=== PATIENT | female | born 1945 | race Caucasian/White ===

== ENCOUNTER → 2016-10-03 | Outpatient (CLI) | payer MEDICARE, BC ==
[2016-10-03 15:06] VITALS: BP 143/87; PULSE 74; RESP 16; TEMP 98.1; BMI 33.1
--- NOTE | 2016-10-03 15:13 | P.HPBAR ---
Bariatric H&P - History & Physicial H&P Date: 10/03/16 History & Physicial: Visit/CC: Band Follow-Up Patient initial contact: Initial weight: 112.037 kg Initial weight in pounds: 247.00 Height: 5 ft 3 in Initial BMI: 43.7 Last weight: Current weight: 84.878 kg Current weight in pounds: 187.00 Current BMI: 33.1 [place] body weight (based on NIH guidelines): 52.163 kg Excess body weight loss: 45.4% The patient is a 70 year-old F who presents for Bariatric Assessment. The patient has complaints of some indigestion and epigastric pain. She also has some issues with GERD and reflux. Past Medical History History of Any Multi-Drug Resistant Organisms: None Reported Past Surgical History: Appendectomy, Bariatric Surgery, Cholecystectomy, Hysterectomy, Orthopedic Surgery Additional Past Surgical History / Comment(s): gastric band surgery 2006fill 2014 2cc in band last f left shoulder scbilateral knee surgery left hip replacement Past Anesthesia/Blood Transfusion Reactions: No Reported Reaction Past Psychological History: No Psychological Hx Reported Smoking Status: Never smoker Past Alcohol Use History: None Reported Past Drug Use History: None Reported Surgical - Exam Vital Signs Temp Pulse Resp BP 98.1 F 74 16 143/87 10/03/16 14:58 10/03/16 14:58 10/03/16 14:58 10/03/16 14:58 - General well developed, no distress - Eyes PERRL - ENT normal pinna - Neck no masses - Respiratory normal expansion - Cardiovascular Rhythm: regular - Abdomen Abdomen: soft, non tender Bariatric Assessment & Plan Plan: The patient's LAP-BAND was empty. She had 2 mL removed from her LAP-BAND. She will follow-up in one month. Bariatric Checklist Checklist: Plan: Checklist: EGD: 1. Hiatal hernia: 2. H. Pylori: HgbA1c: Vitamin D: Smoking: Never smoker Primary care physician referral: Dr. Kuhn/[place] Psychiatry clearance: Cardiology clearance: Sleep study: Diet journal: VTE risk score: VTE risk level: Rehab needs at discharge:
== END | disposition home or self-care (01) ==
LOC: BARWHC3 14:40
PROVIDERS: ATTEND Surgery
DX: Z48.815 Encounter for surgical aftercare following surgery on the digestive system (principal); Z98.84 Bariatric surgery status; Z68.38 Body mass index [BMI] 38.0-38.9, adult; K21.9 Gastro-esophageal reflux disease without esophagitis; R10.13 Epigastric pain
CPT/HCPCS: 99202

== ENCOUNTER → 2017-03-27 | Outpatient (CLI) | payer MEDICARE, BC ==
[2017-03-27 15:34] VITALS: BP 140/82; PULSE 87; TEMP 98.1; BMI 37.2
--- NOTE | 2017-03-27 16:38 | P.HPBAR ---
Bariatric H&P - History & Physicial H&P Date: 03/27/17 History & Physicial: Visit/CC: lap band fill Patient initial contact: Initial weight: 112.037 kg Initial weight in pounds: 247.00 Height: 5 ft 3 in Initial BMI: 43.7 Last weight: 187 Current weight: 95.39 kg Current weight in pounds: 210.30 Current BMI: 37.2 [place] body weight (based on NIH guidelines): 52.163 kg Excess body weight loss: 27.8% The patient is a 71 year-old F who presents for Bariatric Assessment. Patient is a safer LAP-BAND follow-up. She states that she is hungry and asking weight. She's gained 20 pounds her last visit. She is requesting fluid to be adherent band. Past Medical History History of Any Multi-Drug Resistant Organisms: None Reported Past Surgical History: Appendectomy, Bariatric Surgery, Cholecystectomy, Hysterectomy, Orthopedic Surgery Additional Past Surgical History / Comment(s): gastric band surgery 2006fill 2014 2cc in band last f left shoulder scbilateral knee surgery left hip replacement Past Anesthesia/Blood Transfusion Reactions: No Reported Reaction Smoking Status: Never smoker Surgical - Exam Vital Signs Temp Pulse BP 98.1 F 87 140/82 03/27/17 15:28 03/27/17 15:28 03/27/17 15:28 - General well developed - Abdomen Abdomen: soft, non tender Bariatric Assessment & Plan Plan: Morbid obesity with BMI of 37. Patient's LAP-BAND was just. She had 2 mL added to her band. She will follow-up in one month. Bariatric Checklist Checklist: Plan: Checklist: EGD: 1. Hiatal hernia: 2. H. Pylori: HgbA1c: Vitamin D: Smoking: Never smoker Primary care physician referral: Dr. Kuhn/[place] Psychiatry clearance: Cardiology clearance: Sleep study: Diet journal: VTE risk score: VTE risk level: Rehab needs at discharge:
== END | disposition home or self-care (01) ==
LOC: BARWHC3 14:26
PROVIDERS: ATTEND Surgery
DX: Z48.815 Encounter for surgical aftercare following surgery on the digestive system (principal); E66.01 Morbid (severe) obesity due to excess calories; Z68.37 Body mass index [BMI] 37.0-37.9, adult; Z98.84 Bariatric surgery status
CPT/HCPCS: 99212

== ENCOUNTER → 2017-07-24 | Outpatient (CLI) | payer MEDICARE, BC ==
[2017-07-24 15:54] VITALS: BP 138/86; PULSE 75; RESP 16; TEMP 98; BMI 35.2
--- NOTE | 2017-07-24 16:48 | P.HPBAR ---
Bariatric H&P - History & Physicial H&P Date: 07/24/17 History & Physicial: Visit/CC: band check Patient initial contact: Initial weight: 112.037 kg Initial weight in pounds: 247.00 Height: 5 ft 3 in Initial BMI: 43.7 Last weight: Current weight: 90.293 kg Current weight in pounds: 199.00 Current BMI: 35.2 [place] body weight (based on NIH guidelines): 52.163 kg Excess body weight loss: 36.3% The patient is a 71 year-old F who presents for Bariatric Assessment. Since today for lab band follow up. Dysphagia. She wants a small amount of fluid removed from her band. Past Medical History History of Any Multi-Drug Resistant Organisms: None Reported Past Surgical History: Bariatric Surgery, Cholecystectomy, Hysterectomy, Orthopedic Surgery Additional Past Surgical History / Comment(s): gastric band surgery 2006fill 2014 2cc in band last f left shoulder scbilateral knee surgery left hip replacement Past Anesthesia/Blood Transfusion Reactions: No Reported Reaction Smoking Status: Never smoker Surgical - Exam Vital Signs Temp Pulse Resp BP 98.0 F 75 16 138/86 07/24/17 15:50 07/24/17 15:50 07/24/17 15:50 07/24/17 15:50 - General well developed, no distress - Eyes PERRL - ENT normal pinna - Neck no masses - Respiratory normal expansion - Cardiovascular Rhythm: regular - Abdomen Abdomen: soft, non tender Bariatric Assessment & Plan Plan: Morbid obesity. Patient's band was emptied 0.3 mL. She has 1.7 mL in the band. She'll follow-up in one week. Bariatric Checklist Checklist: Plan: Checklist: EGD: 1. Hiatal hernia: 2. H. Pylori: HgbA1c: Vitamin D: Smoking: Never smoker Primary care physician referral: Dr. Kuhn/[place] Psychiatry clearance: Cardiology clearance: Sleep study: Diet journal: VTE risk score: VTE risk level: Rehab needs at discharge:
== END | disposition home or self-care (01) ==
LOC: BARWHC3 15:20
PROVIDERS: ATTEND Surgery
DX: Z09 Encounter for follow-up examination after completed treatment for conditions other than malignant neoplasm (principal); Z98.84 Bariatric surgery status
CPT/HCPCS: 99212

== ENCOUNTER 2018-09-03 16:35 | Inpatient (IN) | payer MEDICARE, BC ==
[2018-09-03 17:57] LABS: Basophils % (A) 0 %; Eosinophils # (A) 0.1 k/uL (0-0.7); Eosinophils % (A) 2 %; HCT 44.2 % (34.0-46.0); HGB 14.8 gm/dL (11.4-16.0); Lymphocytes # (A) 1.8 k/uL (1.0-4.8); Lymphocytes % (A) 26 %; MCH 30.8 pg (25.0-35.0); MCHC 33.4 g/dL (31.0-37.0); MCV 92.1 fL (80.0-100.0); Mean Platelet Volume 6.4; Monocytes # (A) 0.3 k/uL (0-1.0); Monocytes % (A) 5 %; Neutrophils # (A) 4.7 k/uL (1.3-7.7); Neutrophils % (A) 66 %; Platelet Count 186 k/uL (150-450); RDW 13.1 % (11.5-15.5); WBC 7.1 k/uL (3.8-10.6)
[2018-09-03 18:16] LABS: Creatine Kinase 53 U/L (30-135)
[2018-09-03 18:21] LABS: ALT 24 U/L (9-52); AST 24 U/L (14-36); Alkaline Phosphatase 86 U/L (38-126); Anion Gap 8 mmol/L; Blood Urea Nitrogen 11 mg/dL (7-17); Calcium 9.6 mg/dL (8.4-10.2); Carbon Dioxide 27 mmol/L (22-30); Chloride 106 mmol/L (98-107); Glucose 103 mg/dL (74-99); Potassium 5.5 mmol/L (3.5-5.1); Sodium 141 mmol/L (137-145); Total Bilirubin 0.6 mg/dL (0.2-1.3)
[2018-09-03 18:27] LABS: Creatine Kinase MB 0.5 ng/mL (0.0-2.4); Troponin I <0.012 ng/mL (0.000-0.034)
--- NOTE | 2018-09-03 20:23 | ED ---
SOB HPI - General Chief Complaint: Shortness of Breath Stated Complaint: SOB Time Seen by Provider: 09/03/18 19:27 Source: patient, RN notes reviewed Mode of arrival: ambulatory Limitations: no limitations - History of Present Illness Initial Comments: This is a 72-year-old female who presents with complaints of shortness of breath exertional dyspnea. He states she's had peripheral edema this started several days before [place]. She's had weight gain in between 12 and 15 pounds. She states her shoes and socks are tight she also feels some chest tightness over the past 3 days. No fevers chills nausea vomiting sweats. No tightness at this time. No history of CHF she is a former smoker who quit about 30 years ago. She's never been diagnosed with asthma or COPD. MD Complaint: shortness of breath - Related Data Home Medications Medication Instructions Recorded Confirmed No Known Home Medications 07/25/17 07/25/17 Allergies Allergy/AdvReac Type Severity Reaction Status Date / Time No Known Allergies Allergy Verified 09/03/18 16:46 Review of Systems ROS Statement: Those systems with pertinent positive or pertinent negative responses have been documented in the HPI. ROS Other: All systems not noted in ROS Statement are negative. Past Medical History Past Medical History: No Reported History History of Any Multi-Drug Resistant Organisms: None Reported Past Surgical History: Bariatric Surgery, Cholecystectomy, Hysterectomy, Orthopedic Surgery Additional Past Surgical History / Comment(s): gastric band surgery 2006fill 2015 2cc in band last f left shoulder scbilateral knee surgery left hip replacement Past Anesthesia/Blood Transfusion Reactions: No Reported Reaction Past Psychological History: No Psychological Hx Reported Smoking Status: Former smoker Past Alcohol Use History: Rare Past Drug Use History: None Reported General Exam - General Exam Comments Initial Comments: This is a well-developed well-nourished awake alert oriented 3 female Limitations: no limitations General appearance: alert, in no apparent distress Head exam: Present: atraumatic, normocephalic, normal inspection Eye exam: Present: normal appearance, PERRL, EOMI. Absent: scleral icterus, conjunctival injection, periorbital swelling ENT exam: Present: normal exam, mucous membranes moist Neck exam: Present: normal inspection, full ROM, other (No stridor JVD or bruits ). Absent: tenderness, meningismus, lymphadenopathy Respiratory exam: Present: decreased breath sounds. Absent: respiratory distress, wheezes, rales, rhonchi, stridor Cardiovascular Exam: Present: regular rate, normal rhythm, normal heart sounds. Absent: systolic murmur, diastolic murmur, rubs, gallop, clicks GI/Abdominal exam: Present: soft, normal bowel sounds. Absent: distended, tenderness, guarding, rebound, rigid Extremities exam: Present: normal inspection, full ROM, normal capillary refill , pedal edema. Absent: tenderness, joint swelling, calf tenderness Back exam: Present: normal inspection Neurological exam: Present: alert, oriented X3, CN II-XII intact Psychiatric exam: Present: normal affect, normal mood Skin exam: Present: warm, dry, intact, normal color. Absent: rash Course Vital Signs 09/03/18 09/03/18 09/03/18 16:42 19:47 19:50 Temperature 97.8 F Pulse Rate 73 67 69 Respiratory 20 18 18 Rate Blood Pressure 207/88 147/79 147/79 O2 Sat by Pulse 98 95 96 Oximetry 09/03/18 09/03/18 09/03/18 20:00 20:54 21:00 Temperature Pulse Rate 65 66 64 Respiratory 20 16 Rate Blood Pressure 147/79 156/89 O2 Sat by Pulse 94 L 100 Oximetry 09/03/18 21:07 Temperature Pulse Rate 68 Respiratory Rate Blood Pressure O2 Sat by Pulse Oximetry Medical Decision Making - Medical Decision Making Patient is some remote relief from the nebulizer treatment. She will be admitted for evaluation of peripheral edema suspected heart failure a component of COPD as suspected I did discuss case with Dr. Garner - Lab Data Result diagrams: 09/03/18 17:42 09/03/18 17:42 Lab Results 09/03/18 09/03/18 09/03/18 Range/Units 17:42 17:42 17:42 WBC 7.1 (3.8-10.6) k/uL RBC 4.80 (3.80-5.40) m/uL Hgb 14.8 (11.4-16.0) gm/dL Hct 44.2 (34.0-46.0) % MCV 92.1 (80.0-100.0) fL MCH 30.8 (25.0-35.0) pg MCHC 33.4 (31.0-37.0) g/dL RDW 13.1 (11.5-15.5) % Plt Count 186 (150-450) k/uL Neutrophils % 66 % Lymphocytes % 26 % Monocytes % 5 % Eosinophils % 2 % Basophils % 0 % Neutrophils # 4.7 (1.3-7.7) k/uL Lymphocytes # 1.8 (1.0-4.8) k/uL Monocytes # 0.3 (0-1.0) k/uL Eosinophils # 0.1 (0-0.7) k/uL Basophils # 0.0 (0-0.2) k/uL Sodium 141 (137-145) mmol/L Potassium 5.5 H (3.5-5.1) mmol/L Chloride 106 (98-107) mmol/L Carbon Dioxide 27 (22-30) mmol/L Anion Gap 8 mmol/L BUN 11 (7-17) mg/dL Creatinine 0.52 (0.52-1.04) mg/dL Est GFR (CKD-EPI)AfAm >90 (>60 ml/min/1.73 sqM) Est GFR (CKD-EPI)NonAf >90 (>60 ml/min/1.73 sqM) Glucose 103 H (74-99) mg/dL Plasma Lactic Acid Brenden (0.7-2.0) mmol/L Calcium 9.6 (8.4-10.2) mg/dL Magnesium (1.6-2.3) mg/dL Total Bilirubin 0.6 (0.2-1.3) mg/dL AST 24 (14-36) U/L ALT 24 (9-52) U/L Alkaline Phosphatase 86 (38-126) U/L Total Creatine Kinase 53 (30-135) U/L CK-MB (CK-2) 0.5 (0.0-2.4) ng/mL CK-MB (CK-2) Rel Index 0.9 Troponin I <0.012 (0.000-0.034) ng/mL NT-Pro-B Natriuret Pep pg/mL Total Protein 7.0 (6.3-8.2) g/dL Albumin 4.0 (3.5-5.0) g/dL 09/03/18 09/03/18 09/03/18 Range/Units 17:42 17:42 17:42 WBC (3.8-10.6) k/uL RBC (3.80-5.40) m/uL Hgb (11.4-16.0) gm/dL Hct (34.0-46.0) % MCV (80.0-100.0) fL MCH (25.0-35.0) pg MCHC (31.0-37.0) g/dL RDW (11.5-15.5) % Plt Count (150-450) k/uL Neutrophils % % Lymphocytes % % Monocytes % % Eosinophils % % Basophils % % Neutrophils # (1.3-7.7) k/uL Lymphocytes # (1.0-4.8) k/uL Monocytes # (0-1.0) k/uL Eosinophils # (0-0.7) k/uL Basophils # (0-0.2) k/uL Sodium (137-145) mmol/L Potassium (3.5-5.1) mmol/L Chloride (98-107) mmol/L Carbon Dioxide (22-30) mmol/L Anion Gap mmol/L BUN (7-17) mg/dL Creatinine (0.52-1.04) mg/dL Est GFR (CKD-EPI)AfAm (>60 ml/min/1.73 sqM) Est GFR (CKD-EPI)NonAf (>60 ml/min/1.73 sqM) Glucose (74-99) mg/dL Plasma Lactic Acid Brenden 1.6 (0.7-2.0) mmol/L Calcium (8.4-10.2) mg/dL Magnesium 2.0 (1.6-2.3) mg/dL Total Bilirubin (0.2-1.3) mg/dL AST (14-36) U/L ALT (9-52) U/L Alkaline Phosphatase (38-126) U/L Total Creatine Kinase (30-135) U/L CK-MB (CK-2) (0.0-2.4) ng/mL CK-MB (CK-2) Rel Index Troponin I (0.000-0.034) ng/mL NT-Pro-B Natriuret Pep 355 pg/mL Total Protein (6.3-8.2) g/dL Albumin (3.5-5.0) g/dL - EKG Data -: EKG Interpreted by [facility] EKG shows normal: sinus rhythm (With a first-degree AV block right bundle branch lock left anterior fascicular block and minimal voltage criteria for LVH ventricular rate 66. Interval to 12 QRS duration 138 QT since QTC 462/44) - Radiology Data Radiology results: report reviewed (Crease interstitial markings noted on x-ray) , image reviewed Disposition Clinical Impression: Congestive heart failure, Peripheral edema, Bronchospasm, acute Disposition: ADMITTED IP TO THIS [facility] Condition: Stable Referrals: Isai Rajput MD [Primary Care Provider] - 1-2 days
[2018-09-03] MEDS ORDERED: IPRATROPIUM-ALBUTEROL 3 ML NEB INHALATION STA (20:40)
--- NOTE | 2018-09-03 20:55 | XR ---
EXAMINATION TYPE: XR chest 2V DATE OF EXAM: 09/03/2018 COMPARISON: None HISTORY: 72-year-old female shortness of breath, cough TECHNIQUE: PA and lateral views FINDINGS: Heart borderline enlarged. Mild elongation thoracic aorta. Mild interstitial prominence. No sizable e ffusion. IMPRESSION: Borderline cardiomegaly and interstitial changes. Correlate for possible mild pulmonary vascular gabrielle estion.
[2018-09-03] MEDS ORDERED: FUROSEMIDE 10 MG/ML 4 ML VIAL IV STA (23:01)
[2018-09-03] MEDS ORDERED: SODIUM CHLORIDE 0.9% 1,000 ML IV SCH (23:15)
[2018-09-03] MEDS ORDERED: FUROSEMIDE 10 MG/ML 4 ML VIAL IV SCH (23:15)
--- NOTE | 2018-09-03 23:31 | P.HPIM ---
History of Present Illness H&P Date: 09/03/18 Chief Complaint: sob 72-year-old female who presents with complaints of progressively worsening exertional chest pressure as well as shortness of breath. She states she's had bilateral legs edema that started several days before [place]. She's had weight gain in between 12 and 15 pounds. She states her shoes and socks are tightl. Also has exertional chest pressure/tightness over the past 3 days that is relieved with rest. She has been having cough for a while. No recent illness , fevers chills nausea vomiting sweats. No history of CHF, she is a former smoker who quit about 30 years ago, smoked about 40 years. She's never been diagnosed with asthma or COPD. Review of Systems 12 point review of system performed, negative except for HPI Past Medical History Past Medical History: No Reported History History of Any Multi-Drug Resistant Organisms: None Reported Past Surgical History: Bariatric Surgery, Cholecystectomy, Hysterectomy, Orthopedic Surgery Additional Past Surgical History / Comment(s): gastric band surgery 2006fill 2015 2cc in band last f left shoulder scbilateral knee surgery left hip replacement Past Anesthesia/Blood Transfusion Reactions: No Reported Reaction Past Psychological History: No Psychological Hx Reported Smoking Status: Former smoker Past Alcohol Use History: Rare Past Drug Use History: None Reported Medications and Allergies Home Medications Medication Instructions Recorded Confirmed Type No Known Home Medications 07/25/17 07/25/17 History Allergies Allergy/AdvReac Type Severity Reaction Status Date / Time No Known Allergies Allergy Verified 09/03/18 16:46 Physical Exam Vitals: Vital Signs Temp Pulse Resp BP Pulse Ox 09/03/18 23:00 75 16 121/72 93 L 09/03/18 22:00 76 16 133/68 93 L 09/03/18 21:07 68 09/03/18 21:00 64 16 156/89 100 09/03/18 20:54 66 09/03/18 20:00 65 20 147/79 94 L 09/03/18 19:50 69 18 147/79 96 09/03/18 19:47 67 18 147/79 95 09/03/18 16:42 97.8 F 73 20 207/88 98 Intake and Output 09/03/18 09/03/18 09/04/18 14:59 22:59 06:59 Other: Weight 95.708 kg Constitutional: No acute distress, conversant, pleasant Eyes:Anicteric sclerae, moist conjunctiva, no lid-lag, PERRLA, ENMT: Oropharynx clear, no erythema, exudates Neck: Supple, FROM, no masses, or JVD, No carotid bruits, No thyromegaly Lungs: Clear to auscultation, Clear to percussion, Normal respiratory effort, no accessory muscle use Cardiovascular: Heart regular in rate and rhythm, No murmurs, gallops, or rubs, 2+ peripheral edema Abdominal: Soft, Nontender, no guarding, rebound or rigidity, Normoactive bowel sounds, No hepatomegaly, No splenomegaly, No palpable mass Skin: Normal temperature, tone, texture, turgor, no induration, No subcutaneous nodules, No rash, lesions, No ulcers Extremities: No digital cyanosis, No clubbing, Pedal pulses intact and symmetrical, Radial pulses intact and symmetrical, No calf tenderness Psychiatric: Alert and oriented to person, place and time, appropriate affect, intact judgement Neuro: Muscles Strength 5/5 in all 4 extremities, Sensation to light touch grossly present throughout, Cranial nerves II-XII grossly intact, no focal sensory deficits Results CBC & Chem 7: 09/03/18 17:42 09/03/18 17:42 Labs: Abnormal Lab Results - Last 24 Hours (Table) 09/03/18 Range/Units 17:42 Potassium 5.5 H (3.5-5.1) mmol/L Glucose 103 H (74-99) mg/dL Assessment and Plan Plan: Acute onset of shortness of breath and chest tightness Likely secondary to congestive heart failure, new onset Rule out coronary artery disease Cardiology consult Cycle troponins Check HbA1c and lipid profile Lasix 20 mg IV twice a day Start baby aspirin Monitor daily weights and I's and O's DVT prophylaxis SCDs
[2018-09-04 01:25] VITALS: BMI 38.0
[2018-09-04] MEDS: ACETAMINOPHEN TAB 325 MG TAB PO PRN ×2 (05:42→10:58)
[2018-09-04 06:33] LABS: Basophils % (A) 1 %; Eosinophils # (A) 0.1 k/uL (0-0.7); Eosinophils % (A) 1 %; HCT 42.5 % (34.0-46.0); HGB 14.1 gm/dL (11.4-16.0); Lymphocytes # (A) 1.8 k/uL (1.0-4.8); Lymphocytes % (A) 27 %; MCH 30.7 pg (25.0-35.0); MCHC 33.2 g/dL (31.0-37.0); MCV 92.4 fL (80.0-100.0); Mean Platelet Volume 6.6; Monocytes # (A) 0.5 k/uL (0-1.0); Monocytes % (A) 7 %; Neutrophils # (A) 4.1 k/uL (1.3-7.7); Neutrophils % (A) 62 %; Platelet Count 191 k/uL (150-450); RDW 13.2 % (11.5-15.5); WBC 6.6 k/uL (3.8-10.6)
[2018-09-04 07:03] LABS: Anion Gap 6 mmol/L; Blood Urea Nitrogen 14 mg/dL (7-17); Calcium 9.4 mg/dL (8.4-10.2); Carbon Dioxide 32 mmol/L (22-30); Chloride 103 mmol/L (98-107); Cholesterol 187 mg/dL (<200); Glucose 100 mg/dL (74-99); HDL Cholesterol 85 mg/dL (40-60); LDL Cholesterol,Calculated 87 mg/dL (0-99); Magnesium 1.9 mg/dL (1.6-2.3); Phosphorus 4.5 mg/dL (2.5-4.5); Potassium 4.8 mmol/L (3.5-5.1); Sodium 141 mmol/L (137-145); Triglycerides 76 mg/dL (<150)
[2018-09-04] MEDS: FUROSEMIDE 10 MG/ML 2 ML VIAL IV SCH ×2 (08:03→20:22)
[2018-09-04] MEDS: ASPIRIN 81 MG PO SCH (08:03)
[2018-09-04] MEDS: IPRATROPIUM-ALBUTEROL 3 ML NEB INHALATION SCH ×4 (08:31→20:40)
--- NOTE | 2018-09-04 14:25 | P.PN ---
Subjective Patient complains of couple weeks worsening shortness of breath with exertion and eventually at rest. He complains of significant weight gain and leg edema. Also orthopnea. She denies any cough. She denies any chest pain SHOT does report some chest tightness. On admission chest x-ray showed some interstitial pulmonary changes consistent with congestive changes. She was given IV Lasix with significant diuresis and she's feeling much better her chest tightness has resolved and her shortness of breath is much improved. She has history of smoking. She does not take any aspirin. She denies any family history of coronary artery disease or heart failure. REVIEW OF SYSTEMS: CONSTITUTIONAL: No fever or chills HEENT: No changes in vision or voice CARDIOVASCULAR: no chest pain or abnormal heart beats, or any swelling in ankles or feet. RESPIRATORY: per hpi GASTROINTESTINAL: No abdominal pain, no nausea no vomiting no constipation or diarrhea GENITOURINARY: no any urinary urgency, frequency or burning, and there has been no blood in her urine. no flank pain. MUSCULOSKELETAL: She notes full range of motion of all her joints without pain or swelling. NEUROLOGICAL: , no headache. no vision changes, or fainting. No numbness or tingling. Objective - Vital Signs Vital signs: Vital Signs Temp 97.8 F 09/04/18 12:00 Pulse 66 09/04/18 12:26 Resp 18 09/04/18 12:17 BP 158/80 09/04/18 12:00 Pulse Ox 95 09/04/18 12:00 Intake & Output 09/03/18 09/04/18 09/04/18 18:59 06:59 18:59 Intake Total 250 Output Total 700 Balance -700 250 Weight 95.708 kg 97.3 kg 97.3 kg Intake: Intake, IV Titration 10 Amount Sodium Chloride 0.9% 1, 10 000 ml @ 20 mls/hr IV . Q24H [facility] Rx#:[id number] Oral 240 Output: Urine 700 Other: Voiding Method Toilet # Voids 1 - Exam Vital Signs: I have reviewed the vital signs. GENERAL: Well-nourished, Well-developed , no apparent distress, cooperative Eyes: PERRL, extraoculry movements intact, clear conjunctiva Head: : Atraumatic external nose and ears, oropharyngeal mucosa is moist without lesions or exudates Neck: Symmetric, trachea midline, No thyromegaly, no masses or neck vain pulsation, no neck rigidity CVS: +S1/S2, No murmurs or gallops. Peripheral pulses 2+ and equal in all extremities. RESP: Unlabored respiratory effort. It sounds are present and few inspiratory crackles in the bases but no wheezing Abdomen: Bowel sounds present in all 4 quadrants, Soft to palpation, Nontender/ Nondistended, No hepatosplenomegaly, no hernias or masses, no CVA tnderness Musculoskeletal: Extremities w/o deformity, No cyanosis or clubbing, no joint swelling. 1+ pitting edema Skin: Warm, Dry. No rashes or lesions Neuro: search marketing specialist II-XII grossly intact, motor strenght 5/5 i upper and lower extremities, no clonus, patellar DTRs 2+ and sympetrical Psych: Awake, Alert, & Oriented (AAO) x3 Appropriate mood and affect - Labs CBC & Chem 7: 09/04/18 05:36 09/04/18 05:36 Labs: Abnormal Lab Results - Last 24 Hours (Table) 09/03/18 09/04/18 Range/Units 17:42 05:36 Potassium 5.5 H (3.5-5.1) mmol/L Carbon Dioxide 32 H (22-30) mmol/L Glucose 103 H 100 H (74-99) mg/dL HDL Cholesterol 85 H (40-60) mg/dL Assessment and Plan Assessment: 1. Dyspnea New onset Clinically due to congestive heart failure exacerbation Cardiac workup pending including echocardiogram, cardiology consultation and these results possibly ischemic workup Continue with diuresis Strict I's and O's Monitor electrolytes and renal function
--- NOTE | 2018-09-04 15:11 | P.CRDCN ---
History of Present Illness History of present illness: This is Dr. 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 EXAMINATION: On examination she does have mild bilateral lower extremity edema Breath sounds are reduced but active with her no rhonchi no crackles Heart sounds. Was soft no murmurs or gallop or rub Abdomen soft nontender Blood pressure elevated 150 tolerated millimeters mercury pulse rate in the 60s afebrile REVIEW OF LABS, ECG & MEDICAL DATA Normal hemoglobin potassium 5.5 normal renal function Troponins normal BNP 355 Sinus rhythm prolonged RI interval right bundle branch block left anterior fascicular block Past Medical History Past Medical History: No Reported History History of Any Multi-Drug Resistant Organisms: None Reported Past Surgical History: Bariatric Surgery, Cholecystectomy, Hysterectomy, Orthopedic Surgery Additional Past Surgical History / Comment(s): gastric band surgery 2006fill 2014 2cc in band last f left shoulder scbilateral knee surgery left hip replacement Past Anesthesia/Blood Transfusion Reactions: No Reported Reaction Past Psychological History: No Psychological Hx Reported Smoking Status: Former smoker Past Alcohol Use History: Rare Past Drug Use History: None Reported - Past Family History Mother Family Medical History: Cancer Father Family Medical History: Congestive Heart Failure (CHF) Medications and Allergies Home Medications Medication Instructions Recorded Confirmed Type Ibuprofen [Advil] 600 mg PO DAILY 09/03/18 09/03/18 History Allergies Allergy/AdvReac Type Severity Reaction Status Date / Time No Known Allergies Allergy Verified 09/03/18 23:48 Physical Exam Vitals: Vital Signs Temp Pulse Pulse Resp BP BP Pulse Ox 09/04/18 12:26 66 09/04/18 12:17 64 18 09/04/18 12:00 97.8 F 63 18 158/80 95 09/04/18 08:41 75 18 09/04/18 08:31 75 18 09/04/18 08:00 98.1 F 72 18 124/73 96 09/04/18 03:15 74 19 09/04/18 03:14 98.0 F 74 19 169/84 95 09/04/18 00:57 98.0 F 71 16 166/90 98 09/03/18 23:00 75 16 121/72 93 L 09/03/18 22:00 76 16 133/68 93 L 09/03/18 21:07 68 09/03/18 21:00 64 16 156/89 100 09/03/18 20:54 66 09/03/18 20:00 65 20 147/79 94 L 09/03/18 19:50 69 18 147/79 96 09/03/18 19:47 67 18 147/79 95 09/03/18 16:42 97.8 F 73 20 207/88 98 Intake and Output 09/04/18 09/04/18 09/04/18 06:59 14:59 22:59 Intake Total 250 Output Total 700 Balance -700 250 Intake: Intake, IV Titration 10 Amount Sodium Chloride 0.9% 1, 10 000 ml @ 20 mls/hr IV . Q24H [facility] Rx#:[id number] Oral 240 Output: Urine 700 Other: Voiding Method Toilet # Voids 1 Weight 97.3 kg 97.3 kg Results 09/04/18 05:36 09/04/18 05:36 Cardiac Enzymes 09/03/18 09/03/18 09/04/18 Range/Units 17:42 17:42 05:36 AST 24 (14-36) U/L CK-MB (CK-2) 0.5 (0.0-2.4) ng/mL Troponin I <0.012 <0.012 (0.000-0.034) ng/mL Lipids 09/04/18 Range/Units 05:36 Triglycerides 76 (<150) mg/dL Cholesterol 187 (<200) mg/dL HDL Cholesterol 85 H (40-60) mg/dL CBC 09/03/18 09/04/18 Range/Units 17:42 05:36 WBC 7.1 6.6 (3.8-10.6) k/uL RBC 4.80 4.60 (3.80-5.40) m/uL Hgb 14.8 14.1 (11.4-16.0) gm/dL Hct 44.2 42.5 (34.0-46.0) % Plt Count 186 191 (150-450) k/uL Comprehensive Metabolic Panel 09/03/18 09/04/18 Range/Units 17:42 05:36 Sodium 141 141 (137-145) mmol/L Potassium 5.5 H 4.8 (3.5-5.1) mmol/L Chloride 106 103 (98-107) mmol/L Carbon Dioxide 27 32 H (22-30) mmol/L BUN 11 14 (7-17) mg/dL Creatinine 0.52 0.65 (0.52-1.04) mg/dL Glucose 103 H 100 H (74-99) mg/dL Calcium 9.6 9.4 (8.4-10.2) mg/dL AST 24 (14-36) U/L ALT 24 (9-52) U/L Alkaline Phosphatase 86 (38-126) U/L Total Protein 7.0 (6.3-8.2) g/dL Albumin 4.0 (3.5-5.0) g/dL Current Medications Generic Name Dose Route Start Last Admin Trade Name Oscarq PRN Reason Stop Dose Admin Acetaminophen 650 mg 09/03/18 23:22 09/04/18 10:58 Tylenol Tab PO 650 mg Q6HR PRN Administration Mild Pain or Fever > 100.5 Albuterol/Ipratropium 3 ml 09/04/18 08:00 09/04/18 12:17 Duoneb 0.5 Mg-3 Mg/3 Ml Soln INHALATION 3 ml RT-QID [facility] Administration Aspirin 81 mg 09/04/18 09:00 09/04/18 08:03 Aspirin PO 81 mg DAILY EL[facility]ETH Administration Furosemide 20 mg 09/04/18 09:00 09/04/18 08:03 Lasix IV 20 mg Q12HR EL[facility] Administration Intake and Output 09/04/18 09/04/18 09/04/18 06:59 14:59 22:59 Intake Total 250 Output Total 700 Balance -700 250 Intake: Intake, IV Titration 10 Amount Sodium Chloride 0.9% 1, 10 000 ml @ 20 mls/hr IV . Q24H [facility] Rx#:[id number] Oral 240 Output: Urine 700 Other: Voiding Method Toilet # Voids 1 Weight 97.3 kg 97.3 kg Patient Weight 09/05/18 06:59 Weight 97.3 kg 09/04/18 05:36 09/04/18 05:36
[2018-09-04] MEDS ORDERED: ASPIRIN 325 MG TAB PO SCH (23:04)
[2018-09-05] MEDS: ACETAMINOPHEN TAB 325 MG TAB PO PRN (06:06)
[2018-09-05] MEDS: IPRATROPIUM-ALBUTEROL 3 ML NEB INHALATION SCH ×4 (07:31→20:30)
[2018-09-05 07:33] LABS: Anion Gap 7 mmol/L; Blood Urea Nitrogen 14 mg/dL (7-17); Calcium 9.6 mg/dL (8.4-10.2); Carbon Dioxide 32 mmol/L (22-30); Chloride 101 mmol/L (98-107); Glucose 103 mg/dL (74-99); Magnesium 1.9 mg/dL (1.6-2.3); Potassium 4.5 mmol/L (3.5-5.1); Sodium 140 mmol/L (137-145)
[2018-09-05] MEDS: FUROSEMIDE 10 MG/ML 2 ML VIAL IV SCH (08:50)
[2018-09-05] MEDS: ASPIRIN 81 MG PO SCH (08:50)
[2018-09-05 09:55] LABS: Hemoglobin A1C 5.6 % (4.0-6.0)
--- NOTE | 2018-09-05 10:55 | P.PN ---
Subjective Patient admitted with shortness of breath and chest tightness for few days and signs of fluid overload. She was started on Lasix and diuresed very well although I did not have any accurate intakes and outputs. Today she is reporting resolution all of her symptoms she is ambulating in the room without shortness of breath or chest tightness completely resolved. Her leg swelling is much better to some is still present. REVIEW OF SYSTEMS: CONSTITUTIONAL: No fever or chills HEENT: No changes in vision or voice CARDIOVASCULAR: no chest pain or abnormal heart beats, or any swelling in ankles or feet. RESPIRATORY: per hpi GASTROINTESTINAL: No abdominal pain, no nausea no vomiting no constipation or diarrhea GENITOURINARY: no any urinary urgency, frequency or burning, and there has been no blood in her urine. no flank pain. MUSCULOSKELETAL: She notes full range of motion of all her joints without pain or swelling. NEUROLOGICAL: , no headache. no vision changes, or fainting. No numbness or tingling. Objective - Vital Signs Vital signs: Vital Signs Temp 97.0 F L 09/05/18 08:00 Pulse 74 09/05/18 08:00 Resp 16 09/05/18 08:00 BP 154/77 09/05/18 08:00 Pulse Ox 96 09/05/18 08:00 Intake & Output 09/04/18 09/05/18 09/05/18 18:59 06:59 18:59 Intake Total 490 820 240 Balance 490 820 240 Weight 97.3 kg 94.8 kg Intake: IV 20 Invasive Line 1 20 Intake, IV Titration 10 Amount Sodium Chloride 0.9% 1, 10 000 ml @ 20 mls/hr IV . Q24H [facility] Rx#:[id number] Oral 480 800 240 Other: Voiding Method Toilet # Voids 2 2 - Exam Vital Signs: I have reviewed the vital signs. GENERAL: Well-nourished, Well-developed , no apparent distress, cooperative Eyes: PERRL, extraoculry movements intact, clear conjunctiva Head: : Atraumatic external nose and ears, oropharyngeal mucosa is moist without lesions or exudates Neck: Symmetric, trachea midline, No thyromegaly, no masses or neck vain pulsation, no neck rigidity CVS: +S1/S2, No murmurs or gallops. Peripheral pulses 2+ and equal in all extremities. RESP: Unlabored respiratory effort. It sounds are present and few inspiratory crackles in the bases but no wheezing Abdomen: Bowel sounds present in all 4 quadrants, Soft to palpation, Nontender/ Nondistended, No hepatosplenomegaly, no hernias or masses, no CVA tnderness Musculoskeletal: Extremities w/o deformity, No cyanosis or clubbing, no joint swelling. 1+ pitting edema Skin: Warm, Dry. No rashes or lesions Neuro: investigator fraud II-XII grossly intact, motor strenght 5/5 i upper and lower extremities, no clonus, patellar DTRs 2+ and sympetrical Psych: Awake, Alert, & Oriented (AAO) x3 Appropriate mood and affect - Labs CBC & Chem 7: 09/04/18 05:36 09/05/18 06:51 Labs: Abnormal Lab Results - Last 24 Hours (Table) 09/05/18 Range/Units 06:51 Carbon Dioxide 32 H (22-30) mmol/L Glucose 103 H (74-99) mg/dL Microbiology - Last 24 Hours (Table) 09/03/18 17:42 Blood Culture - Preliminary Blood No Growth after 24 hours Assessment and Plan Assessment: 1. Dyspnea and chest tightness with signs of fluid overload New onset Clinically appears to be due to congestive heart failure exacerbation Her serum albumin and liver enzymes and creatinine are normal Echocardiogram results showing preserved EF and mild LVF Change Lasix to daily Strict I's and O's Monitor electrolytes and renal function Cardiology is following Ischemic work up per cardiology Addd UA for protein evaluation Given pulmonary edema like picture with hypetension , but preserved EF and not pronounced diastolic disfunction, pt will need ischemic work up and renal artery dopplers to r/o renal artery stenosis 2. Hypertensive emergency with SBP 207 on admission and pulmonary vascular congestion BP better pt has elements of hypertensive heart disease on Echo may consider adding BB after ischemic workup along with diuretic avoid ACEI/ARB for now since presented with mild hyperkalemia; if started would need close follow up further titration as outpatient
--- NOTE | 2018-09-05 12:40 | ECHOF ---
Referral Reason:Peripheral edema, CHF MEASUREMENTS -------- HEIGHT: 160.0 cm WEIGHT: 94.3 kg BP: 137/75 IVSd: 1.0 cm (0.6 - 1.1) LVIDd: 4.0 cm (3.9 - 5.3) LVPWd: 1.2 cm (0.6 - 1.1) IVSs: 1.6 cm LVIDs: 1.4 cm LVPWs: 1.7 cm Ao Diam: 3.2 cm (2.0 - 3.7) AV Cusp: 1.7 cm (1.5 - 2.6) LA Diam: 3.0 cm (2.7 - 3.8) MV EXCURSION: 15.271 mm (> 18.000) MV EF SLOPE: 48 mm/s (70 - 150) EPSS: 0.6 cm MV E Rufus: 0.55 m/s MV DecT: 263 ms MV A Rufus: 0.78 m/s MV E/A Ratio: 0.70 RAP: 5.00 mmHg RVSP: 24.03 mmHg FINDINGS -------- Sinus rhythm. This was a technically difficult study with suboptimal views. The left ventricular size is normal. There is borderline concentric left ventricular hypertrophy. Overall left ventricular systolic function is normal with, an EF between 55 - 60 %. The right ventricle is normal in size and function. The left atrium is normal in size. The right atrium is normal in size. Lumason used The aortic valve is trileaflet, and appears structurally normal. No aortic stenosis or regurgitation. There is trace mitral regurgitation. Mild tricuspid regurgitation present. The right ventricular systolic pressure, as measured by Doppl er, is 24.03mmHg. Pulmonic valve appears structurally normal. The aortic root size is normal. IVC Not well visulized. The pericardium is normal. CONCLUSIONS -------- 1. Sinus rhythm. 2. This was a technically difficult study with suboptimal views. 3. The left ventricular size is normal. 4. There is borderline concentric left ventricular hypertrophy. 5. Overall left ventricular systolic function is normal with, an EF between 55 - 60 %. 6. The right ventricle is normal in size and function. 7. The left atrium is normal in size. 8. The right atrium is normal in size. 9. Lumason used 10. The aortic valve is trileaflet, and appears structurally normal. No aortic stenosis or regurgitat ion. 11. There is trace mitral regurgitation. 12. Mild tricuspid regurgitation present. 13. The right ventricular systolic pressure, as measured by Doppler, is 24.03mmHg. 14. Pulmonic valve appears structurally normal. 15. The aortic root size is normal. 16. IVC Not well visulized. 17. The pericardium is normal. PC ANALYST: Camryn Sutton RDCS
--- NOTE | 2018-09-05 14:57 | P.PN ---
Subjective Progress Note Date: 09/05/18 This is a pleasant 72-year-old female presented to the hospital with symptoms of increasing shortness of breath and exertional chest discomfort. Patient was also noted to have bilateral lower extremity edema. Patient was seen and Dr. Berman in consult. Echocardiogram with Doppler study was performed which revealed an ejection fraction of 55-60%. Blood pressure 146/70 , heart rate in the 60s, 94% on room air. Objective - Vital Signs Vital signs: Vital Signs Temp 97.0 F L 09/05/18 08:00 Pulse 68 09/05/18 12:00 Resp 18 09/05/18 12:00 BP 146/75 09/05/18 12:00 Pulse Ox 94 L 09/05/18 12:00 Intake & Output 09/04/18 09/05/18 09/05/18 18:59 06:59 18:59 Intake Total 490 820 240 Balance 490 820 240 Weight 97.3 kg 94.8 kg Intake: IV 20 Invasive Line 1 20 Intake, IV Titration 10 Amount Sodium Chloride 0.9% 1, 10 000 ml @ 20 mls/hr IV . Q24H [facility] Rx#:[id number] Oral 480 800 240 Other: Voiding Method Toilet # Voids 2 2 - Exam PHYSICAL EXAMINATION: GENERAL: 72-year-old female in no acute distress at the time of my examination HEENT: Head is atraumatic, normocephalic. Pupils equal, round. Sclera anicteric. Conjunctiva are clear. Mucous membranes of the mouth are moist. Neck is supple. There is no elevated jugular venous pressure. No carotid bruit is heard. HEART EXAMINATION: Heart S1, S2 normal. No murmur or gallop heard. CHEST EXAMINATION: Lungs are clear to auscultation and precussion. No chest wall tenderness is noted on palpation or with deep breathing. ABDOMEN: Soft, nontender. Bowel sounds are heard. No organomegaly noted. EXTREMITIES: 2+ peripheral pulses with evidence of peripheral edema and no calf tenderness noted. NEUROLOGIC patient is awake, alert and oriented 3 . . - Labs CBC & Chem 7: 09/04/18 05:36 09/05/18 06:51 Labs: Abnormal Lab Results - Last 24 Hours (Table) 09/05/18 Range/Units 06:51 Carbon Dioxide 32 H (22-30) mmol/L Glucose 103 H (74-99) mg/dL Microbiology - Last 24 Hours (Table) 09/03/18 17:42 Blood Culture - Preliminary Blood No Growth after 24 hours Assessment and Plan Plan: Assessment and plan #1 symptoms of exertional chest discomfort and shortness of breath, troponins are negative. Echo reveals normal left ventricular systolic function. Evidence of trifascicular block on EKG. Not in congestive heart failure, BNP level in the range of 300. Plan We'll discontinue the patient's IV Lasix. Etiology of the patient's shortness of breath and exertional chest discomfort undetermined. We would recommend to obtain a d-dimer. We will also schedule the patient for stress test tomorrow. Echocardiogram with Doppler study revealed a normal left ventricular systolic function. DNP note has been reviewed, I agree with a documented findings and plan of care. Patient was seen and examined.
[2018-09-05 16:23] LABS: Appearance,Urine Clear (Clear); Bacteria,Urine Occasional /hpf; Bilirubin,Urine Negative (Negative); Blood,Urine Negative (Negative); Color,Urine Yellow; Glucose,Urine (UA) Negative (Negative); Hyaline Casts,Urine 7 /lpf (0-2); Ketones,Urine Negative (Negative); Leukocyte Esterase,Urine Trace (Negative); Mucus,Urine Rare /hpf; Nitrite,Urine Negative (Negative); Protein,Urine Trace (Negative); RBC,Urine 1 /hpf (0-5); Specific Gravity,Urine 1.019 (1.001-1.035); Squamous Epithelial Cell,Urine <1 /hpf (0-4); WBC,Urine 5 /hpf (0-5)
[2018-09-06 07:51] LABS: Anion Gap 6 mmol/L; Blood Urea Nitrogen 19 mg/dL (7-17); Calcium 9.5 mg/dL (8.4-10.2); Carbon Dioxide 30 mmol/L (22-30); Chloride 103 mmol/L (98-107); Glucose 107 mg/dL (74-99); Magnesium 1.9 mg/dL (1.6-2.3); Potassium 4.5 mmol/L (3.5-5.1); Sodium 139 mmol/L (137-145)
[2018-09-06] MEDS: IPRATROPIUM-ALBUTEROL 3 ML NEB INHALATION SCH ×4 (08:05→19:46)
[2018-09-06] MEDS ORDERED: FUROSEMIDE 10 MG/ML 4 ML VIAL IV SCH (09:00)
[2018-09-06] MEDS: ASPIRIN 81 MG PO SCH (10:12)
--- NOTE | 2018-09-06 10:51 | US ---
EXAMINATION TYPE: US renal artery duplex complet DATE OF EXAM: 09/06/2018 COMPARISON: NONE CLINICAL HISTORY: Hypertensive emergency;r/o renal artery stenosis. Patient stated is not taking anti hypertensive medication US exam is technically limited due to larger body habitus and overlying bowel gas. MEASUREMENTS: RENAL SIZE: Rt Kidney: 9.4 x 5.6 x 4.7cm Lt Kidney: 9.9 x 5.6 x 4.7cm RESISTANCE INDEX Right: 0.77 Left: 0.75 RA/AO RATIO (< 3.5 ) Right: 3.0 Left: 2.3 RA VELOCITY ( < 180 cm/s) Right: 166.2cm/s mid renal artery Left: 126.2cm/s mid renal artery US findings: Aorta size is wnl , but intimal wall thickening is noted distally. Right upper renal cor tical hypoechoic nodule is seen = 0.9 x 0.9 x 0.8cm. Good Color Flow imaging is seen to renal cortex bilaterally. No renal masses are seen. Mildly elevated PSV is noted in tortuous mid Right Renal Artery, however, Resistive Indices, RA/AO Ra tios are wnl bilaterally. IMPRESSION: 1. No diagnostic evidence of renal artery stenosis. 2. Atherosclerotic change and intimal wall thickening of the distal aorta correlate with CT scan as c linically warranted. 3. Indeterminate right renal lesion too small to characterize.
[2018-09-06] MEDS ORDERED: LOSARTAN 25 MG TAB PO SCH (11:45)
--- NOTE | 2018-09-06 15:37 | P.PN ---
Subjective Progress Note Date: 09/06/18 This is a pleasant 72-year-old female presented to the hospital with symptoms of increasing shortness of breath and exertional chest discomfort. Patient was also noted to have bilateral lower extremity edema. Patient was seen and Dr. Berman in consult. Echocardiogram with Doppler study was performed which revealed an ejection fraction of 55-60%. Blood pressure 146/70 , heart rate in the 60s, 94% on room air. 09/06/2018 Patient was seen and examined today, underwent a stress echocardiographic study that was negative for any reversible ischemia. Renal artery duplex was also performed today which did not reveal any evidence of renal artery stenosis. Indeterminant right renal lesion too small to characterize. Blood pressure 152 /80 with a heart rate in the 70s, 94% on room air. According to the patient, she ran the treadmill during her stress test without any problems, she had no shortness of breath and no chest tightness. A d-dimer was performed this morning which came back to be 0.64. We will recommend that the patient undergo a CT angiogram to rule out pulmonary embolism. A venous duplex study has also been requested to rule out DVT. Objective - Vital Signs Vital signs: Vital Signs Temp 98 F 09/06/18 04:00 Pulse 82 09/06/18 11:52 Resp 14 09/06/18 11:37 BP 152/84 09/06/18 11:36 Pulse Ox 94 L 09/06/18 11:36 Intake & Output 09/05/18 09/06/18 09/06/18 18:59 06:59 18:59 Intake Total 480 660 Output Total 700 Balance 480 -40 Weight 94.7 kg Intake: IV 20 Invasive Line 1 20 Oral 480 640 Output: Urine 700 Other: Voiding Method Toilet - Exam PHYSICAL EXAMINATION: GENERAL: 72-year-old female in no acute distress at the time of my examination HEENT: Head is atraumatic, normocephalic. Pupils equal, round. Sclera anicteric. Conjunctiva are clear. Mucous membranes of the mouth are moist. Neck is supple. There is no elevated jugular venous pressure. No carotid bruit is heard. HEART EXAMINATION: Heart S1, S2 normal. No murmur or gallop heard. CHEST EXAMINATION: Lungs are clear to auscultation and precussion. No chest wall tenderness is noted on palpation or with deep breathing. ABDOMEN: Soft, nontender. Bowel sounds are heard. No organomegaly noted. EXTREMITIES: 2+ peripheral pulses with trace evidence of peripheral edema and no calf tenderness noted. NEUROLOGIC patient is awake, alert and oriented 3 . . - Labs CBC & Chem 7: 09/04/18 05:36 09/06/18 06:37 Labs: Abnormal Lab Results - Last 24 Hours (Table) 09/05/18 09/05/18 09/06/18 Range/Units 15:08 17:03 06:37 D-Dimer 0.64 H (<0.60) mg/L FEU BUN 19 H (7-17) mg/dL Glucose 107 H (74-99) mg/dL Urine Protein Trace H (Negative) Ur Leukocyte Esterase Trace H (Negative) Urine Bacteria Occasional H (None) /hpf Hyaline Casts 7 H (0-2) /lpf Urine Mucus Rare H (None) /hpf Microbiology - Last 24 Hours (Table) 09/03/18 17:42 Blood Culture - Preliminary Blood No Growth after 48 hours Assessment and Plan Plan: Assessment and plan #1 symptoms of exertional chest discomfort and shortness of breath, troponins are negative. Echo reveals normal left ventricular systolic function. Evidence of trifascicular block on EKG. Not in congestive heart failure, BNP level in the range of 300. #2 hypertension Plan Stress echocardiographic study negative for any reversible ischemia. D-dimer 0.64. TSH chest to rule out pulmonary embolism, bilateral venous duplex study has also been requested to rule out DVT. Further recommendations will be based on these findings and patient's clinical course. DNP note has been reviewed, I agree with a documented findings and plan of care. Patient was seen and examined.
--- NOTE | 2018-09-06 15:42 | US ---
EXAMINATION TYPE: US venous doppler duplex LE BI DATE OF EXAM: 09/06/2018 3:21 PM COMPARISON: NONE CLINICAL HISTORY: r/o dvt. SIDE PERFORMED: Bilateral TECHNIQUE: The lower extremity deep venous system is examined utilizing real time linear array sonog lopez with graded compression, doppler sonography and color-flow sonography. VESSELS IMAGED: External Iliac Vein (EIV) Common Femoral Vein Deep Femoral Vein Greater Saphenous Vein * Femoral Vein Popliteal Vein Small Saphenous Vein * Proximal Calf Veins (* superficial vessels) Patient of large body habitus. Exam done portably. Right Leg: Negative for DVT Left Leg: Negative for DVT, unable to reach leg for augment. IMPRESSION: 1. No diagnostic evidence of DVT as visualized.
--- NOTE | 2018-09-06 16:32 | CT ---
EXAMINATION TYPE: CT angio chest DATE OF EXAM: 09/06/2018 COMPARISON: None HISTORY: shortness of breath CT DLP: 367.1 mGycm CONTRAST: CT chest with contrast and 3D reconstruction with MIP imaging is performed with IV Contrast, patient injected with 88 mL of Isovue 370. Contrast-enhanced CT of the chest was performed through the course of the pulmonary arteries with hailee g and mediastinal window settings submitted. 3D reconstruction with MIP imaging was also performed. PULMONARY ARTERIES: The pulmonary arteries and their major tributaries are patent. I do not see blanca dence for sizable filling defect to suggest pulmonary embolic process. LUNGS: The lungs are clear and free of infiltrate. No evidence for atelectasis. No pulmonary nodule or mass is detected. No pleural effusion. MEDIASTINUM: Thoracic aorta is of normal caliber,however, evaluation is limited given timing of the contrast bolus. If there is concern for thoracic aortic pathology consider BRYNN. Correlate clinicall y . The heart is not enlarged. No evidence for mediastinal mass. No mediastinal lymph nodes greater than 1cm. HILAR STRUCTURES: No evidence for mass. No hilar lymph nodes greater than 1 cm. UPPER ABDOMEN: No significant abnormality is seen. IMPRESSION: 1. No evidence for Pulmonary embolism at this time.
--- NOTE | 2018-09-06 18:29 | P.PN ---
Subjective Patient reports feeling much better and her shortness of breath and chest tightness completely resolved. Her leg edema significantly better. Discuss recent test resulting of negative renal ultrasound and CTA. She is pending results of stress test. Overall she's feeling much better. REVIEW OF SYSTEMS: CONSTITUTIONAL: No fever or chills HEENT: No changes in vision or voice CARDIOVASCULAR: no chest pain or abnormal heart beats, or any swelling in ankles or feet. RESPIRATORY: per hpi GASTROINTESTINAL: No abdominal pain, no nausea no vomiting no constipation or diarrhea GENITOURINARY: no any urinary urgency, frequency or burning, and there has been no blood in her urine. no flank pain. MUSCULOSKELETAL: She notes full range of motion of all her joints without pain or swelling. NEUROLOGICAL: , no headache. no vision changes, or fainting. No numbness or tingling. Objective - Vital Signs Vital signs: Vital Signs Temp 98.8 F 09/06/18 16:00 Pulse 78 09/06/18 16:39 Resp 14 09/06/18 16:00 BP 148/92 09/06/18 16:00 Pulse Ox 93 L 09/06/18 16:00 Intake & Output 09/05/18 09/06/18 09/06/18 18:59 06:59 18:59 Intake Total 480 660 480 Output Total 700 Balance 480 -40 480 Weight 94.7 kg Intake: IV 20 Invasive Line 1 20 Oral 480 640 480 Output: Urine 700 Other: Voiding Method Toilet - Exam Vital Signs: I have reviewed the vital signs. GENERAL: Well-nourished, Well-developed , no apparent distress, cooperative Eyes: PERRL, extraoculry movements intact, clear conjunctiva Head: : Atraumatic external nose and ears, oropharyngeal mucosa is moist without lesions or exudates Neck: Symmetric, trachea midline, No thyromegaly, no masses or neck vain pulsation, no neck rigidity CVS: +S1/S2, No murmurs or gallops. Peripheral pulses 2+ and equal in all extremities. RESP: Unlabored respiratory effort. It sounds are present and few inspiratory crackles in the bases but no wheezing Abdomen: Bowel sounds present in all 4 quadrants, Soft to palpation, Nontender/ Nondistended, No hepatosplenomegaly, no hernias or masses, no CVA tnderness Musculoskeletal: Extremities w/o deformity, No cyanosis or clubbing, no joint swelling. 1+ pitting edema Skin: Warm, Dry. No rashes or lesions Neuro: slackman II-XII grossly intact, motor strenght 5/5 i upper and lower extremities, no clonus, patellar DTRs 2+ and sympetrical Psych: Awake, Alert, & Oriented (AAO) x3 Appropriate mood and affect - Labs CBC & Chem 7: 09/04/18 05:36 09/06/18 06:37 Labs: Abnormal Lab Results - Last 24 Hours (Table) 09/06/18 Range/Units 06:37 BUN 19 H (7-17) mg/dL Glucose 107 H (74-99) mg/dL Microbiology - Last 24 Hours (Table) 09/03/18 17:42 Blood Culture - Preliminary Blood No Growth after 48 hours Assessment and Plan Assessment: 1. Dyspnea and chest tightness with signs of fluid overload Echocardiogram, renal artery ultrasound and CTA all negative She has normal liver enzymes normal albumin urine without any protein Blood pressure and admission was about 200 and there is a possibility that she had a pulmonary congestion and fluid overload related to uncontrolled hypertension and mild diastolic dysfunction She diuresed well and now she is euvolemic better We'll plan to adjust her blood pressure medications and discharge her home in next 24 hours once cleared by cardiology. 2. Hypertensive emergency with SBP 207 on admission and pulmonary vascular congestion BP better pt has elements of hypertensive heart disease on Echo Patient was started on losartan by cardiology tolerating that well. We'll add chlorthalidone. She will need to check her BMP in 1 week with her PCP and I discussed that with the patient Disposition: Plan for discharge with the next 24 hours we will discharge home
[2018-09-07 05:23] VITALS: TEMP 98.1
[2018-09-07 07:24] LABS: Anion Gap 4 mmol/L; Blood Urea Nitrogen 16 mg/dL (7-17); Calcium 9.5 mg/dL (8.4-10.2); Carbon Dioxide 31 mmol/L (22-30); Chloride 104 mmol/L (98-107); Glucose 108 mg/dL (74-99); Magnesium 2.1 mg/dL (1.6-2.3); Potassium 5.1 mmol/L (3.5-5.1); Sodium 139 mmol/L (137-145)
[2018-09-07] MEDS: IPRATROPIUM-ALBUTEROL 3 ML NEB INHALATION SCH ×2 (07:45→11:08)
[2018-09-07 07:46] VITALS: BP 144/82; RESP 16
[2018-09-07] MEDS: ASPIRIN 81 MG PO SCH (07:49)
[2018-09-07 07:59] VITALS: PULSE 82
[2018-09-07] MEDS ORDERED: LOSARTAN 50 MG TAB PO SCH (09:00)
[2018-09-07] MEDS ORDERED: TRIAMTERENE-HCTZ 37.5-25MG 1 EACH CAP PO SCH (09:15)
--- NOTE | 2018-09-07 10:05 | ECHOS ---
STRESS ECHOCARDIOGRAM INDICATIONS: Chest pain. MEDICATIONS: Ibuprofen. BASELINE HEART RATE: 92 BASELINE BLOOD PRESSURE: 161/98 MAXIMUM HEART RATE: 137 MAXIMUM BLOOD PRESSURE: 219/100 85% MPHR: 125 100% MPHR: 147 METS: 4.0 MAXIMUM STAGE REACHED: I TOTAL EXERCISE TIME: 2:55 CLINICAL INFORMATION: Patient was exercised for a total period of 3 minutes. The peak heart rate of 137 was achieved, maximum blood pressure of 210/100 mmHg was noted. Resting EKG shows normal sinus rhythm with normal OK interval and QRS duration with the QRS morphology suggestive of right bundle branch block pattern was noted. No ST-segment depression suggestive of ischemia was noted. Occasional PVCs and occasional ventricular couplets were noted. The baseline echocardiographic images reveals normal left ventricular chamber size with normal left ventricular systolic function in the immediate postexercise period. Normal increase in the wall thickness and contractility was noted. FINAL IMPRESSION: 1. This stress echocardiographic study is negative for stress-induced ischemia. 2. EKG portion of the stress test is not suggestive of ischemia. 3. Occasional premature ventricular contractions and ventricular couplets were noted. MMODL / IJN: [id number] /
--- NOTE | 2018-09-07 12:41 | P.PN ---
Subjective Patient looks well. No chest discomfort dizziness lightheadedness or palpitations. Ambulating in her room When she came in she was complaining of weight gain and lower extremity edema. Her blood pressure is been noted to be elevated here but both her daughter and the patient really resisting taking any antihypertensive therapy. However she does admit to salt indiscretion and lots of canned tuna Twelve-lead ECG shows trifascicular block. No syncope 2-D echo shows mild left frontal hypertrophy with preserved LV systolic function Stress test did not show any evidence for ischemia CT of the chest did not show any evidence for pulmonary embolism Impression Hypertension with left frontal hypertrophy with likely diastolic dysfunction No evidence for any significant coronary artery disease, no evidence for renal artery stenosis no pulmonary embolus him Lower extremity edema Suggest At a very detailed discussion with patient regarding the need for antihypertensive therapy. The patient and the daughter were very resistant to this. They're all kinds of questions. After some convincing. We will to starting losartan 50 g by mouth daily follow her as an outpatient and then maximize either losartan or add Dyazide since lower extremity edema and weight gain was 1 fissures and she does have diastolic heart failure Objective - Vital Signs Vital signs: Vital Signs Temp 98.1 F 09/07/18 07:43 Pulse 82 09/07/18 07:59 Resp 16 09/07/18 07:51 BP 144/82 09/07/18 07:43 Pulse Ox 94 L 09/07/18 07:43 Intake & Output 09/06/18 09/07/18 09/07/18 18:59 06:59 18:59 Intake Total 480 600 240 Balance 480 600 240 Weight 95.1 kg Intake: Oral 480 600 240 Other: Voiding Method Toilet # Voids 1 2 - Labs CBC & Chem 7: 09/04/18 05:36 09/07/18 06:33 Labs: Abnormal Lab Results - Last 24 Hours (Table) 09/07/18 Range/Units 06:33 Carbon Dioxide 31 H (22-30) mmol/L Glucose 108 H (74-99) mg/dL Microbiology - Last 24 Hours (Table) 09/03/18 17:42 Blood Culture - Preliminary Blood No Growth after 72 hours
--- NOTE | 2018-09-07 15:18 | P.DS ---
Providers Date of admission: 09/07/18 07:56 Attending physician: Fanta Garner MD Consults: 09/03/18 23:01 Consult Physician Routine Consulting Provider: Ric Osorio Consult Reason/Comments: CHF, peripheral edema Do you want consulting provider notified?: Yes Primary care physician: Isai [facility] Course: Date of admission 09/04/2018 Date of discharge 09/07/2018 next Consultants: Cardiology associates Admission diagnosis: Chest tightness and Shortness of breath due to fluid overload Discharge diagnosis: #1 acute diastolic CHF exacerbation #2. Fluid overload #3. Hypertensive urgency Procedures done this admission: #1 echocardiogram showing preserved ejection fraction and mild LVH could possibly mild diastolic dysfunction No valvular abnormalities #2. Stress test Negative for inducible ischemia #3. CT angiogram Negative for pulmonary embolism #4. Doppler ultrasound of the lower extremities negative DVT Reasons for admission: This is 72-year-old female who does not carry any past medical history or problems in the home medications presented with progressive worsening and difficulties in breathing accompanied with some chest tightness and discomfort, orthopnea, leg swelling and 10 pounds weight gain or few weeks. In the emergency department her chest x-ray was consistent with pulmonary vascular congestion. 2 sets of troponins were negative and EKG without any acute changes. Blood pressure was admission in 205 range She was admitted for further evaluation Hospital course: Patient was started on diuretics and she shows significant improvement in her symptoms after one given 1 dose of Lasix. She was continued on diuretics and switch to oral Lasix. She show significant diuresis and leg edema almost resolved as well as her symptoms. She was evaluated by cardiology she went for echocardiogram that was showing above-mentioned findings. She had a stress test that was negative for inducible ischemia. Liver enzymes and liver lab work was negative for any abnormalities. Serum albumin was normal. Creatinine was normal. Urine without any proteinuria. On the day of discharge patient was seen and examined in her room. She was doing very well she was ambulating in the room in the hallways without any shortness of breath. Leg edema was completely resolved. We discussed in detail all the findings of the above-mentioned labs. I discussed also with her daughter. REVIEW OF SYSTEMS: CONSTITUTIONAL: No fever or chills HEENT: No changes in vision or voice CARDIOVASCULAR: no chest pain or abnormal heart beats, or any swelling in ankles or feet. RESPIRATORY: No wheezing or coughing. GASTROINTESTINAL: No abdominal pain, no nausea no vomiting no constipation or diarrhea GENITOURINARY: no any urinary urgency, frequency or burning, and there has been no blood in her urine. no flank pain. MUSCULOSKELETAL: She notes full range of motion of all her joints without pain or swelling. NEUROLOGICAL: , no headache. no vision changes, or fainting. No numbness or tingling. Vital Signs: I have reviewed the vital signs. GENERAL: Well-nourished, Well-developed , no apparent distress, cooperative Eyes: PERRL, extraoculry movements intact, clear conjunctiva Head: : Atraumatic external nose and ears, oropharyngeal mucosa is moist without lesions or exudates Neck: Symmetric, trachea midline, No thyromegaly, no masses or neck vain pulsation, no neck rigidity CVS: +S1/S2, No murmurs or gallops. Peripheral pulses 2+ and equal in all extremities. RESP: Unlabored respiratory effort. Clear to auscultation bilaterally. Abdomen: Bowel sounds present in all 4 quadrants, Soft to palpation, Nontender/ Nondistended, No hepatosplenomegaly, no hernias or masses, no CVA tnderness Extremities with trace edema Disposition plan: Patient was discharged home. Her daughter provided transportation. Regarding her hypertension we recommended along with cardiology patient to be started on losartan and hydrochlorothiazide or any other antihypertensive medication the patient would be comfortable with. Patient her daughter expressed discomfort with starting any blood pressure medications. They found the blood pressure was probably elevated due to patient being under stress. Basically they refuse any blood pressure medications. They opted instead on monitoring blood pressure at home and then discussing this further with her [facility] care physician. The provided aspirin which patient accepted and Lasix tabs to be used as needed in case of increased leg swelling or weight gain which patient also accepted. Patient to follow-up with cardiology service in the office in her PCP 45 minutes was spent on this discharge Patient Condition at Discharge: Stable Plan - Discharge Summary Discharge Rx Participant: No New Discharge Prescriptions: New Aspirin [Adult Low Dose Aspirin EC] 81 mg PO DAILY #30 tablet. Furosemide [Lasix] 20 mg PO DAILY PRN #10 tab PRN Reason: leg swelling Aspirin 81 mg PO DAILY #30 chewable Furosemide [Lasix] 20 mg PO DAILY PRN #10 tab PRN Reason: leg swelling Losartan [Cozaar] 50 mg PO DAILY #90 tab Discontinued Ibuprofen [Advil] 600 mg PO DAILY Discharge Medication List Aspirin 81 mg PO DAILY #30 chewable 09/07/18 [Rx] Aspirin [Adult Low Dose Aspirin EC] 81 mg PO DAILY #30 tablet. 09/07/18 [Rx] Furosemide [Lasix] 20 mg PO DAILY PRN #10 tab 09/07/18 [Rx] Furosemide [Lasix] 20 mg PO DAILY PRN #10 tab 09/07/18 [Rx] Losartan [Cozaar] 50 mg PO DAILY #90 tab 09/07/18 [Rx] Follow up Appointment(s)/Referral(s): Jr Berman MD [STAFF PHYSICIAN] - 09/26/18 9:45 am (Monday -office will call you for holter monitor set up) Isai Rajput MD [Primary Care Provider] - 09/10/18 3:15 pm (Monday) [facility], [REFERRING] - Activity/Diet/Wound Care/Special Instructions: labs prior to cardiac appointment-bring prescription Discharge Disposition: HOME SELF-CARE
== END 2018-09-07 13:25 | disposition home health service (06) | DRG 292 ==
LOC: EC 16:35 → UNDOADMIN 20:43 → 3SCARD 20:43 → OBSVTOIN 23:00 → 3SCARD 23:00 → INTOOBSV 23:00 → 3SCARD 09-04 00:42 → OBSVTOIN 09-07 07:56
PROVIDERS: ADMIT Internal Medicine; ATTEND Internal Medicine
DX: I11.0 Hypertensive heart disease with heart failure (principal); I16.1 Hypertensive emergency; I45.3 Trifascicular block; I50.33 Acute on chronic diastolic (congestive) heart failure; J98.01 Acute bronchospasm; N28.9 Disorder of kidney and ureter, unspecified; Z96.642 Presence of left artificial hip joint; Z90.710 Acquired absence of both cervix and uterus; Z87.891 Personal history of nicotine dependence; Z98.84 Bariatric surgery status; Z90.49 Acquired absence of other specified parts of digestive tract; Z82.49 Family history of ischemic heart disease and other diseases of the circulatory system; Z80.9 Family history of malignant neoplasm, unspecified
CPT/HCPCS: 36415; 71046; 71275; 80048; 80053; 80061; 81001; 82550; 82553; 83036; 83605; 83735; 83880; 84100; 84443; 84484; 85025; 85379; 87040; 93005; 93306; 93351; 93970; 93975; 94640; 96374; 99285

== ENCOUNTER → 2021-11-02 | Outpatient (CLI) | payer MEDICARE, BC ==
[2021-11-02 18:19] LABS: HCT 42.9 % (37.2-46.3); HGB 14.5 g/dL (12.0-15.0); MCH 30.7 pg (27.0-32.0); MCHC 33.8 g/dL (32.0-37.0); MCV 90.7 fL (80.0-97.0); Mean Platelet Volume 10.1 fL (9.5-12.2); NRBC Per 100 WBC 0 /100 WBCS (0.0-0.0); Platelet Count 234 X 10*3/uL (140-440); RBC 4.73 X 10*6/uL (4.10-5.20); WBC 6.25 X 10*3/uL (4.50-10.00)
[2021-11-02 18:41] LABS: Carbon Dioxide 24.5 mmol/L (20.0-27.5); Chloride 98 mmol/L (96-109); Chol/HDL Ratio 2.37 Ratio; LDL Cholesterol,Calculated 100.6 mg/dL (0.0-131.0); Potassium 4.1 mmol/L (3.5-5.5); Sodium 137 mmol/L (135-145); VLDL Calculation 14.62 mg/dL (5.00-40.00)
== END | disposition home or self-care (01) ==
LOC: LABWHC1 11:16
PROVIDERS: ATTEND Nurse Practitioner Family
DX: E78.2 Mixed hyperlipidemia (principal)
CPT/HCPCS: 36415; 80051; 80061; 84443; 85027

== ENCOUNTER → 2023-04-10 | Outpatient (CLI) | payer MEDICARE, BC ==
[2023-04-10 13:44] VITALS: PULSE 91; TEMP 97.3; BMI 33.6
[2023-04-10 13:48] VITALS: BP 160/90
--- NOTE | 2023-04-10 13:50 | P.HPBAR ---
Bariatric H&P - History & Physicial H&P Date: 04/10/23 History & Physicial: Visit/CC: lap band Patient initial contact: Initial weight: 112.037 kg Initial weight in pounds: 247.00 Height: 5 ft 3 in Initial BMI: 43.7 Last weight: Current weight: 86.183 kg Current weight in pounds: 190.00 Current BMI: 33.6 [place] body weight (based on NIH guidelines): 52.163 kg Excess body weight loss: 43.1% The patient is a 77 year-old F who presents for Bariatric Assessment. Patient presents today for bariatric follow-up she has not been seen in over 5 years. She has some complaints of some mild left upper quadrant pain. Patient's pointed area over her left rib margin. She's had minimal GERD. She denies any dysphagia or throwing up. Past Medical History Past Medical History: No Reported History History of Any Multi-Drug Resistant Organisms: None Reported Past Surgical History: Bariatric Surgery, Cholecystectomy, Hysterectomy, Orthopedic Surgery Additional Past Surgical History / Comment(s): gastric band surgery 2005, left shoulder, bilateral knee surgery, left hip replacement Past Anesthesia/Blood Transfusion Reactions: No Reported Reaction Past Psychological History: No Psychological Hx Reported Smoking Status: Former smoker Past Alcohol Use History: None Reported Past Drug Use History: None Reported - Past Family History Mother Family Medical History: Cancer Father Family Medical History: Congestive Heart Failure (CHF) Surgical - Exam Vital Signs Temp Pulse BP 97.3 F L 91 160/90 04/10/23 13:37 04/10/23 13:37 04/10/23 13:37 - General well developed, well nourished, no distress - Eyes PERRL - ENT normal pinna, normal nares - Abdomen Patient's LAP-BAND port site is within normal limits. There is no significant pain over the port site. Patient has had some minimal tenderness of the left rib margin. Abdomen: soft, non tender Bariatric Assessment & Plan Plan: Patient has minimal GERD. This will be observed. The patient will be follow-up in 8 weeks. If she has significant left rib pain she may undergo computed tomography scan of her abdomen pelvis. Patient is behind on her screening colonoscopy. Patient does not wish to have a colonoscopy at this time. Bariatric Checklist Checklist: Plan: Checklist: EGD: 1. Hiatal hernia: 2. H. Pylori: HgbA1c: Vitamin D: Smoking: Former smoker Primary care physician referral: Dr. Kuhn/[place] Psychiatry clearance: Cardiology clearance: Sleep study: Diet journal: VTE risk score: VTE risk level: Rehab needs at discharge:
== END ==
LOC: BARWHC3 13:26
PROVIDERS: ATTEND Surgery
DX: E66.01 Morbid (severe) obesity due to excess calories (principal); K21.9 Gastro-esophageal reflux disease without esophagitis; Z48.815 Encounter for surgical aftercare following surgery on the digestive system; Z98.84 Bariatric surgery status; Z87.891 Personal history of nicotine dependence; Z46.51 Encounter for fitting and adjustment of gastric lap band; Z68.33 Body mass index [BMI] 33.0-33.9, adult
CPT/HCPCS: 99211

== ENCOUNTER → 2023-05-01 | Outpatient (CLI) | payer MEDICARE, BC ==
[2023-05-01 15:49] LABS: African American GFR (CKD) >90 (>60 ml/min/1.73 sqM); Blood Urea Nitrogen 13 mg/dL (7-17); Non-African American GFR(CKD) 86 (>60 ml/min/1.73 sqM)
--- NOTE | 2023-05-01 17:29 | CT ---
EXAMINATION TYPE: CT abdomen pelvis w con CT DLP: 1503.1 mGycm, Automated exposure control for dose reduction was used. DATE OF EXAM: 05/01/2023 5:09 PM COMPARISON: None CLINICAL INDICATION:Female, 77 years old with history of R10.12 LEFT UPPER QUADRANT PAIN; LUQ pain, h /o bariatric sx TECHNIQUE: Axial CT of the abdomen and pelvis. Sagittal and coronal reformats were created on a [employer] workstation. Contrast used:100 mL of Isovue 300 with IV Contrast, (none if empty) Oral contrast used: with Oral Contrast (none if empty) FINDINGS: LOWER CHEST: Unremarkable ABDOMEN LIVER: Unremarkable GALLBLADDER AND BILE DUCTS: The gallbladder appears surgically absent. PANCREAS: Lipomatous pseudohypertrophy changes. SPLEEN: Unremarkable. ADRENAL GLANDS: Unremarkable. KIDNEYS AND URETERS: No evidence of hydronephrosis or renal calculus. The ureters are unremarkable. Left renal cortical cyst with calcifications which are thin. Right simple appearing renal cysts. PELVIS BLADDER: Unremarkable REPRODUCTIVE: Unremarkable. ABDOMEN & PELVIS STOMACH AND BOWEL: Gastric lap band is present. It appears to be within appropriate position. Scatter ed colonic diverticula are present. No evidence of bowel obstruction. PERITONEUM/RETROPERITONEUM: No evidence of pneumoperitoneum or free fluid. VASCULATURE: Moderate atherosclerotic calcifications are present throughout the abdominal aorta and i ts branches. No evidence of aortic aneurysm. MUSCULOSKELETAL: No acute osseous abnormalities, left hip arthroplasty changes hardware appears intac t. Multilevel degeneration changes throughout the joints of the back. With grade 1 anterolisthesis of L4 and L5. LYMPH NODES: No gross evidence for lymphadenopathy. SOFT TISSUE/ABDOMINAL WALL: Fat-containing umbilical hernia. IMPRESSION: 1. Extensive colonic diverticulosis without evidence for acute diverticulitis. No other acute left u pper quadrant process visualized. 2. Fat-containing umbilical hernia. 3. Gastric lap band with hardware in appropriate position.
== END | disposition home or self-care (01) ==
LOC: RADCTMAIN 15:00
PROVIDERS: ATTEND Surgery
DX: R10.12 Left upper quadrant pain (principal); K57.30 Diverticulosis of large intestine without perforation or abscess without bleeding; K42.9 Umbilical hernia without obstruction or gangrene; Z46.51 Encounter for fitting and adjustment of gastric lap band
CPT/HCPCS: 82565; 84520; 74177; 36415; Q9967

== ENCOUNTER → 2023-05-01 | Outpatient (CLI) | payer MEDICARE, BC ==
[2023-05-01 14:24] VITALS: BP 159/88; PULSE 80; TEMP 98.1; BMI 33.8
--- NOTE | 2023-06-07 10:49 | P.HPBAR ---
Bariatric H&P - History & Physicial H&P Date: 05/01/23 History & Physicial: Visit/CC: lap band Patient initial contact: Initial weight: 112.037 kg Initial weight in pounds: 247.00 Height: 5 ft 3 in Initial BMI: 43.7 Last weight: Current weight: 86.636 kg Current weight in pounds: 191.00 Current BMI: 33.8 [place] body weight (based on NIH guidelines): 52.163 kg Excess body weight loss: 42.4% The patient is a 77 year-old F who presents for Bariatric Assessment. Patient resents today for bariatric follow-up. She has complaints of left upper quadrant pain. Patient states the pain is intermittent in nature. She finds the pain to be debilitating at times. She denies any nausea vomiting or dysphagia. Past Medical History Past Medical History: No Reported History History of Any Multi-Drug Resistant Organisms: None Reported Past Surgical History: Bariatric Surgery, Cholecystectomy, Hysterectomy, Orthopedic Surgery Additional Past Surgical History / Comment(s): gastric band surgery 2005, left shoulder, bilateral knee surgery, left hip replacement Past Anesthesia/Blood Transfusion Reactions: No Reported Reaction Past Psychological History: No Psychological Hx Reported Smoking Status: Former smoker Past Alcohol Use History: None Reported Past Drug Use History: None Reported - Past Family History Mother Family Medical History: Cancer Father Family Medical History: Congestive Heart Failure (CHF) Surgical - Exam Vital Signs Temp Pulse BP 98.1 F 80 159/88 05/01/23 14:21 05/01/23 14:21 05/01/23 14:21 - General well developed, well nourished, no distress - Eyes PERRL - ENT normal pinna - Neck no masses - Respiratory normal expansion - Abdomen Mild left upper quadrant tenderness. Abdomen: soft Bariatric Assessment & Plan Plan: Left upper quadrant pain. Patient will have computed tomography scan of the abdomen performed. Bariatric Checklist Checklist: Plan: Checklist: EGD: 1. Hiatal hernia: 2. H. Pylori: HgbA1c: Vitamin D: Smoking: Former smoker Primary care physician referral: Dr. Kuhn/[place] Psychiatry clearance: Cardiology clearance: Sleep study: Diet journal: VTE risk score: VTE risk level: Rehab needs at discharge:
== END ==
LOC: BARWHC3 13:45
PROVIDERS: ATTEND Surgery
DX: R10.12 Left upper quadrant pain (principal); Z98.84 Bariatric surgery status; Z87.891 Personal history of nicotine dependence
CPT/HCPCS: 99211

== ENCOUNTER → 2024-02-05 | Outpatient (CLI) | payer MEDICARE, BC ==
[2024-02-05 13:29] VITALS: BP 140/97; PULSE 82; RESP 16; TEMP 97.9; BMI 34.9
--- NOTE | 2024-02-06 09:28 | P.HPBAR ---
Bariatric H&P - History & Physicial H&P Date: 02/05/24 History & Physicial: Visit/CC: Lump left upper abdomen/tenderness Patient initial contact: Initial weight: 112.037 kg Initial weight in pounds: 247.00 Height: 5 ft 3 in Initial BMI: 43.7 Last weight: Current weight: 89.403 kg Current weight in pounds: 197.10 Current BMI: 34.9 [place] body weight (based on NIH guidelines): 52.163 kg Excess body weight loss: 37.8% The patient is a 78 year-old F who presents for Bariatric Assessment.Patient resents today for follow-up. She still has complaints of pain at her port site. Patient's PCP is ordered MRI of the abdomen. There is no significant findings except for pain at her port site. Past Medical History Past Medical History: No Reported History History of Any Multi-Drug Resistant Organisms: None Reported Past Surgical History: Bariatric Surgery, Cholecystectomy, Hysterectomy, Orthopedic Surgery Additional Past Surgical History / Comment(s): gastric band surgery 2005, left shoulder, bilateral knee surgery, left hip replacement Past Anesthesia/Blood Transfusion Reactions: No Reported Reaction Past Psychological History: No Psychological Hx Reported Smoking Status: Former smoker Past Alcohol Use History: None Reported Past Drug Use History: None Reported - Past Family History Mother Family Medical History: Cancer Father Family Medical History: Congestive Heart Failure (CHF) Surgical - Exam Vital Signs Temp Pulse Resp BP Pulse Ox 97.9 F 82 16 140/97 98 02/05/24 10:35 02/05/24 10:35 02/05/24 10:35 02/05/24 10:35 02/05/24 10:35 - General well developed, well nourished, no distress - Eyes PERRL - ENT normal pinna, normal nares - Neck no masses - Respiratory normal expansion - Cardiovascular Rhythm: regular - Abdomen patient has marked tenderness at her LAP-BAND port. There is no sign of infection. Abdomen: soft Bariatric Assessment & Plan Plan: chronic pain related to LAP-BAND port. Patient was given the option shouldn't to observe the LAP-BAND port or to have laparoscopic removal and replacement of LAP-BAND port and moved LAP-BAND port to the other side of the abdomen. Patient most likely has adhesions at her LAP-BAND port which are causing pain. Bariatric Checklist Checklist: Plan: Checklist: EGD: 1. Hiatal hernia: 2. H. Pylori: HgbA1c: Vitamin D: Smoking: Former smoker Primary care physician referral: Dr. Kuhn/[place] Psychiatry clearance: Cardiology clearance: Sleep study: Diet journal: VTE risk score: VTE risk level: Rehab needs at discharge:
== END ==
LOC: BARWHC3 10:33
PROVIDERS: ATTEND Surgery
DX: Z46.51 Encounter for fitting and adjustment of gastric lap band (principal); Z98.84 Bariatric surgery status; Z87.891 Personal history of nicotine dependence; Z90.3 Acquired absence of stomach [part of]
CPT/HCPCS: 99211

== ENCOUNTER → 2024-11-04 | Outpatient (CLI) | payer MEDICARE, BC ==
[2024-11-04 10:33] VITALS: BP 172/80; PULSE 94; RESP 16; TEMP 97.7; BMI 34.2
--- NOTE | 2024-11-04 10:44 | P.HPBAR ---
Bariatric H&P - History & Physicial H&P Date: 11/04/24 History & Physicial: Visit/CC: f/u lap band Patient initial contact: Initial weight: 112.037 kg Initial weight in pounds: 247.00 Height: 5 ft 3 in Initial BMI: 43.7 Last weight: Current weight: 87.543 kg Current weight in pounds: 193.00 Current BMI: 34.2 [place] body weight (based on NIH guidelines): 52.27 kg Excess body weight loss: 40.9% The patient is a 78 year-old F who presents for Bariatric Assessment. Patient presents today for bariatric follow-up. She patient states that she has dysphagia she says that she had some chicken and rice stuck in her esophagus over the weekend. She requesting fluid to be removed. Past Medical History Past Medical History: COPD History of Any Multi-Drug Resistant Organisms: None Reported Past Surgical History: Bariatric Surgery, Cholecystectomy, Hysterectomy, Orthopedic Surgery Additional Past Surgical History / Comment(s): gastric band surgery 2005, left shoulder, bilateral knee surgery, left hip replacement Past Anesthesia/Blood Transfusion Reactions: No Reported Reaction Past Psychological History: No Psychological Hx Reported Smoking Status: Former smoker Past Alcohol Use History: None Reported Past Drug Use History: None Reported - Past Family History Mother Family Medical History: Cancer Father Family Medical History: Congestive Heart Failure (CHF) Surgical - Exam Vital Signs Temp Pulse Resp BP 97.7 F 94 16 172/80 11/04/24 10:22 11/04/24 10:22 11/04/24 10:22 11/04/24 10:22 - General well developed, well nourished, no distress - Eyes PERRL - ENT normal pinna, normal nares - Neck no masses - Respiratory normal expansion - Cardiovascular Rhythm: regular - Abdomen Abdomen: soft, non tender Bariatric Assessment & Plan Plan: Patient's l Lap-Band was empty. She had 1.2 cc removed the band. She will follow-up in 1 month. Bariatric Checklist Checklist: Plan: Checklist: EGD: 1. Hiatal hernia: 2. H. Pylori: HgbA1c: Vitamin D: Smoking: Former smoker Primary care physician referral: Dr. Kuhn/[place] Psychiatry clearance: Cardiology clearance: Sleep study: Diet journal: VTE risk score: VTE risk level: Rehab needs at discharge:
== END ==
LOC: BARWHC3 10:13
PROVIDERS: ATTEND Surgery
DX: Z46.51 Encounter for fitting and adjustment of gastric lap band (principal); Z68.41 Body mass index [BMI] 40.0-44.9, adult; Z87.891 Personal history of nicotine dependence
CPT/HCPCS: 43999

== ENCOUNTER → 2024-12-30 | Outpatient (CLI) | payer MEDICARE, BC ==
[2024-12-30 15:40] LABS: Basophils # (A) 0.04 X 10*3/uL (0.00-0.10); Basophils % (A) 0.6 %; Eosinophils # (A) 0.08 X 10*3/uL (0.04-0.35); Eosinophils % (A) 1.2 %; HCT 42.7 % (37.2-46.3); HGB 14.1 g/dL (12.0-15.0); Lymphocytes # (A) 2.31 X 10*3/uL (0.90-5.00); Lymphocytes % (A) 34.2 %; MCH 30.5 pg (27.0-32.0); MCV 92.4 FL (80.0-97.0); Mean Platelet Volume 9.4 FL (9.5-12.2); Monocytes # (A) 0.63 X 10*3/uL (0.20-1.00); Monocytes % (A) 9.3 %; NRBC Per 100 WBC 0 X 10*3/uL (0.00-0.01); Neutrophils # (A) 3.66 X 10*3/uL (1.80-7.70); Neutrophils % (A) 54.3 %; Platelet Count 229 X 10*3/uL (140-440); RBC 4.62 X 10*6/uL (4.10-5.20); RDW 12.4 % (11.5-14.5); WBC 6.75 X 10*3/uL (4.50-10.00)
[2024-12-30 15:53] LABS: ALT 16 U/L (8-44); AST 23 U/L (13-35); Albumin/Globulin Ratio 1.67 Ratio (1.60-3.17); Alkaline Phosphatase 107 U/L (41-126); BUN/Creat Ratio 23.14 Ratio (12.00-20.00); Blood Urea Nitrogen 16.2 mg/dL (9.0-27.0); Calcium 9.7 mg/dL (8.7-10.3); Carbon Dioxide 28.3 mmol/L (21.6-31.8); Chloride 101 mmol/L (96-109); Globulin 2.4 g/dL (1.6-3.3); Glucose 123 mg/dL (70-110); Potassium 4.5 mmol/L (3.5-5.5); Sodium 141 mmol/L (135-145); Total Bilirubin 0.3 mg/dL (0.3-1.2); Total Protein 6.4 g/dL (6.2-8.2)
== END | disposition home or self-care (01) ==
LOC: LABPAT 11:07
PROVIDERS: ATTEND Surgery
DX: Z01.818 Encounter for other preprocedural examination (principal); I44.0 Atrioventricular block, first degree; I45.10 Unspecified right bundle-branch block; I51.89 Other ill-defined heart diseases; R94.31 Abnormal electrocardiogram [ECG] [EKG]
CPT/HCPCS: 36415; 80053; 85025; 93005

== ENCOUNTER → 2024-12-30 | Outpatient (CLI) | payer MEDICARE, BC ==
[2024-12-30 10:47] VITALS: BMI 34.9
[2024-12-30 10:48] VITALS: BP 135/78; PULSE 82; RESP 16; TEMP 98
--- NOTE | 2024-12-30 17:18 | P.HPBAR ---
Bariatric H&P - History & Physicial H&P Date: 12/30/24 History & Physicial: Visit/CC: f/u lapband Patient initial contact: Initial weight: 112.037 kg Initial weight in pounds: 247.00 Height: 5 ft 3 in Initial BMI: 43.7 Last weight: Current weight: 89.358 kg Current weight in pounds: 197.00 Current BMI: 34.9 [place] body weight (based on NIH guidelines): 52.27 kg Excess body weight loss: 37.9% The patient is a 79 year-old F who presents for Bariatric Assessment. This an 79-year-old female who has complaints of epigastric pain and pain at her port site. Patient wished to have her Lap-Band removed. Patient has had the band for many years. She states the pain is worsened over the last 6 months. Past Medical History Past Medical History: COPD History of Any Multi-Drug Resistant Organisms: None Reported Past Surgical History: Bariatric Surgery, Cholecystectomy, Hysterectomy, Orthopedic Surgery Additional Past Surgical History / Comment(s): gastric band surgery 2005, left shoulder, bilateral knee surgery, left hip replacement Past Anesthesia/Blood Transfusion Reactions: No Reported Reaction Past Psychological History: No Psychological Hx Reported Smoking Status: Former smoker Past Alcohol Use History: None Reported Past Drug Use History: None Reported - Past Family History Mother Family Medical History: Cancer Father Family Medical History: Congestive Heart Failure (CHF) Surgical - Exam Vital Signs Temp Pulse Resp BP 98.0 F 82 16 135/78 12/30/24 10:38 12/30/24 10:38 12/30/24 10:38 12/30/24 10:38 - General well developed, well nourished, no distress - Eyes PERRL - ENT normal pinna - Neck no masses - Respiratory normal expansion - Cardiovascular Rhythm: regular - Abdomen Abdomen: soft, non tender Bariatric Assessment & Plan Plan: Epigastric pain related to Lap-Band. Patient will have her Lap-Band system removed per her request. Bariatric Checklist Checklist: Plan: Checklist: EGD: 1. Hiatal hernia: 2. H. Pylori: HgbA1c: Vitamin D: Smoking: Former smoker Primary care physician referral: Dr. Kuhn/[place] Psychiatry clearance: Cardiology clearance: Sleep study: Diet journal: VTE risk score: VTE risk level: Rehab needs at discharge:
== END ==
LOC: BARWHC3 10:20
PROVIDERS: ATTEND Surgery
DX: R10.13 Epigastric pain (principal); Z87.891 Personal history of nicotine dependence
CPT/HCPCS: 99211